=== PATIENT | male | born 1950 | race African-American/Black ===

== ENCOUNTER 2017-10-22 14:48 | Inpatient (IN) | payer OTHER ==
[2017-10-22 16:05] LABS: ADD MAN DIFF? NO
[2017-10-22 16:07] LABS: ABNORMAL IP MESSAGE 1; BASOPHIL # 0.1 10^3/ul (0.0-0.1); BASOPHILS % 0.4 % (0.0-2.0); EOSINOPHILS # 0.4 10^3/ul (0.0-0.5); EOSINOPHILS % 2.4 % (0.0-7.0); HEMOGLOBIN 11.2 g/dl (14.0-18.0); MEAN CORPUSCULAR HEMOGLOBIN 28.7 pg (29.0-33.0); MEAN CORPUSCULAR HGB CONC 32.9 g/dl (32.0-37.0); MEAN CORPUSCULAR VOLUME 87.2 fl (82.0-101.0); MONOCYTES % 12.6 % (0.0-11.0); NEUTROPHIL # 12.4 10^3/ul (1.6-7.5); NEUTROPHILS % 77.3 % (39.0-77.0); NUCLEATED RED BLOOD CELLS% 0.1 /100WBC (0.0-0.0); PLATELET COUNT 346 10^3/UL (140-415); POSITIVE DIFF @See below; RED CELL DISTRIBUTION WIDTH 22.4 % (11.5-14.5)
[2017-10-22 16:25] LABS: ALANINE AMINOTRANSFERASE 18 IU/L (13-69); ALBUMIN 2.4 g/dl (3.3-4.9); ALKALINE PHOSPHATASE 132 IU/L (42-121); ANION GAP 16 (8-16); ASPARTATE AMINO TRANSFERASE 20 IU/L (15-46); BILIRUBIN,INDIRECT 0.5 mg/dl (0-1.1); BILIRUBIN,TOTAL 0.5 mg/dl (0.2-1.3); BLOOD UREA NITROGEN 6 mg/dl (7-20); CALCIUM 8.3 mg/dl (8.4-10.2); CARBON DIOXIDE 22 mmol/L (21-31); CHLORIDE 106 mmol/L (97-110); CREATININE 2.05 mg/dl (0.61-1.24); GLUCOSE 223 mg/dl (70-220); POTASSIUM 4.1 mmol/L (3.5-5.1); SODIUM 140 mmol/L (135-144); TOTAL PROTEIN 6.4 g/dl (6.1-8.1)
[2017-10-22] MEDS: SOD CHLORIDE 0.9% 250 ML IV (16:30)
[2017-10-22 16:33] LABS: B-TYPE NATRIURETIC PEPTIDE 3880 PG/ML (0-125)
[2017-10-22] MEDS: PIPER-TAZO 3.375 GM IV (PMX) 100 ML IVPB (16:37)
[2017-10-22] MEDS ORDERED: ACETAMINOPHEN 325 MG TAB PO ×2 (18:00→20:00)
[2017-10-22] MEDS ORDERED: ONDANSETRON 4 MG INJ IV (18:00)
[2017-10-22] MEDS ORDERED: SOD CHLORIDE 0.9% 1,000 ML IV (19:44)
[2017-10-22 19:46] LABS: ADD UMIC YES; UR ASCORBIC ACID 40 mg/dL (NEGATIVE); UR BACTERIA FEW /HPF (NONE SEEN); UR BILIRUBIN (Dip) 1+ mg/dL (NEGATIVE); UR BLOOD (Dip) 1+ mg/dL (NEGATIVE); UR CLARITY SLIGHTLY CLOUDY (CLEAR); UR COLOR AMBER (YELLOW); UR GLUCOSE (Dip) NEGATIVE (NEGATIVE); UR KETONES (Dip) NEGATIVE (NEGATIVE); UR LEUKOCYTE ESTERASE (Dip) 3+ Leu/ul (NEGATIVE); UR NITRITE (Dip) NEGATIVE (NEGATIVE); UR RBC 17 /HPF (0-5); UR SPECIFIC GRAVITY (Dip) 1.024 (1.003-1.030); UR TOTAL PROTEIN (Dip) 1+ mg/dl (NEGATIVE); UR UROBILINOGEN (Dip) 2+ mg/dL (NEGATIVE); UR WBC > 182 /HPF (0-5)
[2017-10-22] MEDS ORDERED: HYDROCODONE/APAP (5/325) TAB PO (20:00)
[2017-10-22] MEDS ORDERED: DOCUSATE SODIUM 100 MG CAP PO (20:00)
[2017-10-22] MEDS ORDERED: morphine 2 MG INJ IV (20:00)
[2017-10-22] MEDS ORDERED: NACL 0.9% 3 ML SYG IV (20:00)
[2017-10-22] MEDS ORDERED: DEXTROSE 50% 50 ML SYRINGE IV ×2 (20:30)
[2017-10-22] MEDS ORDERED: GLUCOSE GEL 15 GRAM TUBE BUCCAL (20:30)
[2017-10-22] MEDS ORDERED: GLUCOSE GEL 15 GRAM TUBE PO ×2 (20:30)
[2017-10-22] MEDS ORDERED: GLUCAGON 1 MG INJ IM (20:30)
[2017-10-22 20:33] LABS: LACTIC ACID 2.9 mmol/L (0.5-2.0)
[2017-10-22] MEDS: CEFTRIAXONE 1 GM/50 ML (PMX) 50 ML IVPB (20:41)
[2017-10-22] MEDS ORDERED: SODIUM CHLORIDE 0.9% 1L BAG IV* (20:43)
[2017-10-22] MEDS ORDERED: CEFEPIME 2GM/50 ML (PMX) 50 ML IVPB (20:43)
[2017-10-22] MEDS: INSULIN GLARGINE [LANtus] 3 ML PEN SC (22:00)
[2017-10-22] MEDS: SOD CHLORIDE 0.9% 2,000 ML IV (23:35)
[2017-10-22] MEDS: DIPHENHYDRAMINE 25 MG CAP PO (23:39)
[2017-10-22] MEDS: SOD CHLORIDE 0.9% 1,000 ML IV (23:53)
[2017-10-22] MEDS: INSULIN ASPART [NOVOLOG] 3 ML PEN SC (23:53)
[2017-10-23] MEDS: ATORVASTATIN 80 MG TAB PO ×2 (00:14→21:00)
[2017-10-23] MEDS: VANCOMYCIN 1 GM (PMX) 250 ML IVPB (00:15)
[2017-10-23] MEDS: SODIUM CHLORIDE 0.9% 1L BAG IV* (01:28)
[2017-10-23] MEDS ORDERED: SODIUM CHLORIDE 0.9% 1L BAG IV* (01:28)
[2017-10-23] MEDS: ACCU-CHEK XX (02:00)
[2017-10-23] MEDS: DEXTROSE 5%-0.45% NACL 1,000 ML IV (03:11)
[2017-10-23] MEDS: INSULIN ASPART [NOVOLOG] 3 ML PEN SC ×7 (08:15→21:00)
[2017-10-23 08:19] LABS: ADD MAN DIFF? NO
[2017-10-23 08:27] LABS: WHITE BLOOD COUNT 14.5 10^3/ul (4.8-10.8)
[2017-10-23 08:27] LABS: ABNORMAL IP MESSAGE 1; BASOPHIL # 0.1 10^3/ul (0.0-0.1); BASOPHILS % 0.6 % (0.0-2.0); EOSINOPHILS % 6.9 % (0.0-7.0); HEMATOCRIT 27.4 % (42.0-52.0); HEMOGLOBIN 9.1 g/dl (14.0-18.0); LYMPHOCYTES # 1.1 10^3/ul (0.8-2.9); LYMPHOCYTES % 7.8 % (15.0-51.0); MEAN CORPUSCULAR HEMOGLOBIN 28.3 pg (29.0-33.0); MEAN CORPUSCULAR HGB CONC 33.2 g/dl (32.0-37.0); MEAN CORPUSCULAR VOLUME 85.4 fl (82.0-101.0); MEAN PLATELET VOLUME 9.9 fl (7.4-10.4); MONOCYTE # 1.9 10^3/ul (0.3-0.9); MONOCYTES % 13.3 % (0.0-11.0); NEUTROPHIL # 10.3 10^3/ul (1.6-7.5); NEUTROPHILS % 70.6 % (39.0-77.0); PLATELET COUNT 277 10^3/UL (140-415); POSITIVE DIFF @See below; RED BLOOD COUNT 3.21 10^6/ul (4.70-6.10); RED CELL DISTRIBUTION WIDTH 22.2 % (11.5-14.5)
[2017-10-23] MEDS: CHOLECALCIFEROL 1,000 UNIT TAB PO (08:28)
[2017-10-23] MEDS: FINASTERIDE 5 MG TAB PO (08:28)
[2017-10-23] MEDS: NICOTINE (21 MG/24 HR) PATCH TRANSDERM (08:28)
[2017-10-23] MEDS: ASPIRIN (EC) 81 MG TAB PO (08:28)
[2017-10-23 08:37] LABS: HEMOGLOBIN A1C 5.3 % (0-5.9)
[2017-10-23 08:39] LABS: LACTIC ACID 1.5 mmol/L (0.5-2.0)
[2017-10-23 08:43] LABS: ANION GAP 11 (8-16); BLOOD UREA NITROGEN 5 mg/dl (7-20); CALCIUM 7.5 mg/dl (8.4-10.2); CARBON DIOXIDE 22 mmol/L (21-31); CHLORIDE 109 mmol/L (97-110); CREATININE 1.54 mg/dl (0.61-1.24); GLUCOSE 96 mg/dl (70-220); MAGNESIUM 1.7 mg/dl (1.7-2.5); PHOSPHORUS 3.6 mg/dl (2.5-4.9); POTASSIUM 3.6 mmol/L (3.5-5.1); SODIUM 138 mmol/L (135-144)
[2017-10-23] MEDS: ONDANSETRON 4 MG INJ IV (12:19)
[2017-10-23] MEDS ORDERED: VANCOMYCIN IV PER PHARMACY XX (16:00)
[2017-10-23] MEDS ORDERED: morphine LIQ (10 MG/5 ML) CUP PO (17:00)
[2017-10-23] MEDS: SOD CHLORIDE 0.9% 1,000 ML IV (17:11)
[2017-10-23] MEDS: VANCOMYCIN 1.5 GM in SOD CHLORIDE 0.9% 250 ML IVPB (17:36)
[2017-10-23] MEDS ORDERED: VANCOMYCIN 2 GM in SOD CHLORIDE 0.9% 500 ML IVPB (18:00)
[2017-10-23] MEDS ORDERED: CEFTRIAXONE 1 GM/50 ML (PMX) 50 ML IVPB (20:00)
[2017-10-23] MEDS: INSULIN GLARGINE [LANtus] 3 ML PEN SC (20:00)
[2017-10-23 22:54] LABS: GLUCOSE 88 mg/dl (70-220)
[2017-10-24] MEDS: ACCU-CHEK XX (02:00)
[2017-10-24] MEDS: SOD CHLORIDE 0.9% 1,000 ML IV ×3 (03:05→22:30)
[2017-10-24 06:08] LABS: ADD MAN DIFF? NO
[2017-10-24 06:12] LABS: ABNORMAL IP MESSAGE 1; BASOPHILS % 0.4 % (0.0-2.0); EOSINOPHILS # 1.3 10^3/ul (0.0-0.5); EOSINOPHILS % 11.2 % (0.0-7.0); HEMATOCRIT 28.5 % (42.0-52.0); HEMOGLOBIN 9.4 g/dl (14.0-18.0); LYMPHOCYTES # 0.6 10^3/ul (0.8-2.9); LYMPHOCYTES % 5.6 % (15.0-51.0); MEAN CORPUSCULAR HEMOGLOBIN 28.7 pg (29.0-33.0); MEAN CORPUSCULAR VOLUME 86.9 fl (82.0-101.0); MONOCYTE # 1.5 10^3/ul (0.3-0.9); NEUTROPHIL # 7.8 10^3/ul (1.6-7.5); PLATELET COUNT 304 10^3/UL (140-415); POSITIVE DIFF @See below; RED BLOOD COUNT 3.28 10^6/ul (4.70-6.10); RED CELL DISTRIBUTION WIDTH 22.4 % (11.5-14.5)
[2017-10-24 06:12] LABS: WHITE BLOOD COUNT 11.3 10^3/ul (4.8-10.8)
[2017-10-24 06:45] LABS: ANION GAP 9 (8-16); BLOOD UREA NITROGEN 4 mg/dl (7-20); CALCIUM 7.4 mg/dl (8.4-10.2); CARBON DIOXIDE 22 mmol/L (21-31); CHLORIDE 111 mmol/L (97-110); CREATININE 1.39 mg/dl (0.61-1.24); GLUCOSE 100 mg/dl (70-220); MAGNESIUM 1.7 mg/dl (1.7-2.5); POTASSIUM 3.6 mmol/L (3.5-5.1); SODIUM 138 mmol/L (135-144)
[2017-10-24] MEDS: INSULIN ASPART [NOVOLOG] 3 ML PEN SC ×7 (08:15→20:50)
[2017-10-24] MEDS: FINASTERIDE 5 MG TAB PO (08:46)
[2017-10-24] MEDS: ASPIRIN (EC) 81 MG TAB PO (08:47)
[2017-10-24] MEDS: NICOTINE (21 MG/24 HR) PATCH TRANSDERM (08:47)
[2017-10-24] MEDS: CHOLECALCIFEROL 1,000 UNIT TAB PO (08:47)
[2017-10-24] MEDS: VANCOMYCIN 1.5 GM in SOD CHLORIDE 0.9% 250 ML IVPB (17:32)
[2017-10-24] MEDS: INSULIN GLARGINE [LANtus] 3 ML PEN SC (20:00)
[2017-10-24] MEDS: DIPHENHYDRAMINE 25 MG CAP PO (20:48)
[2017-10-24] MEDS: ATORVASTATIN 80 MG TAB PO (20:48)
[2017-10-25] MEDS: ACCU-CHEK XX (02:00)
[2017-10-25 06:13] LABS: ADD MAN DIFF? NO
[2017-10-25 06:22] LABS: ABNORMAL IP MESSAGE 1; BASOPHIL # 0.1 10^3/ul (0.0-0.1); BASOPHILS % 0.5 % (0.0-2.0); EOSINOPHILS # 2.2 10^3/ul (0.0-0.5); EOSINOPHILS % 15.7 % (0.0-7.0); HEMATOCRIT 31.7 % (42.0-52.0); HEMOGLOBIN 10.4 g/dl (14.0-18.0); LYMPHOCYTES % 7.2 % (15.0-51.0); MEAN CORPUSCULAR HGB CONC 32.8 g/dl (32.0-37.0); MEAN CORPUSCULAR VOLUME 88.3 fl (82.0-101.0); MEAN PLATELET VOLUME 10.2 fl (7.4-10.4); MONOCYTE # 1.5 10^3/ul (0.3-0.9); MONOCYTES % 10.5 % (0.0-11.0); NEUTROPHIL # 9.1 10^3/ul (1.6-7.5); NEUTROPHILS % 65.2 % (39.0-77.0); PLATELET COUNT 341 10^3/UL (140-415); POSITIVE DIFF @See below; RED BLOOD COUNT 3.59 10^6/ul (4.70-6.10); RED CELL DISTRIBUTION WIDTH 22.5 % (11.5-14.5)
[2017-10-25 06:51] LABS: ANION GAP 7 (8-16); BLOOD UREA NITROGEN 5 mg/dl (7-20); CALCIUM 7.7 mg/dl (8.4-10.2); CARBON DIOXIDE 23 mmol/L (21-31); CHLORIDE 116 mmol/L (97-110); GLUCOSE 90 mg/dl (70-220); MAGNESIUM 1.6 mg/dl (1.7-2.5); POTASSIUM 4.1 mmol/L (3.5-5.1); SODIUM 142 mmol/L (135-144)
[2017-10-25] MEDS: INSULIN ASPART [NOVOLOG] 3 ML PEN SC ×5 (08:15→20:48)
[2017-10-25] MEDS: SOD CHLORIDE 0.9% 1,000 ML IV ×3 (08:30→20:12)
[2017-10-25] MEDS: CHOLECALCIFEROL 1,000 UNIT TAB PO (09:10)
[2017-10-25] MEDS: ASPIRIN (EC) 81 MG TAB PO (09:10)
[2017-10-25] MEDS: FINASTERIDE 5 MG TAB PO (09:11)
[2017-10-25] MEDS: NICOTINE (21 MG/24 HR) PATCH TRANSDERM (09:12)
[2017-10-25] MEDS: MAGNESIUM OXIDE 400 MG TAB PO ×2 (11:14→20:46)
[2017-10-25] MEDS: MAGNESIUM SULFATE 2 GM/50 ML 50 ML IVPB (18:29)
[2017-10-25] MEDS: DIPHENHYDRAMINE 25 MG CAP PO (18:31)
[2017-10-25] MEDS: INSULIN GLARGINE [LANtus] 3 ML PEN SC (20:00)
[2017-10-25] MEDS: DOXYCYCLINE 100 MG TAB PO (20:45)
[2017-10-25] MEDS: ATORVASTATIN 80 MG TAB PO (20:46)
[2017-10-29 20:11] LABS: PTH CALCIUM 7.5 mg/dL (8.6-10.3)
[2017-10-31 08:56] LABS: PTH INTACT 53 pg/mL (14-64)
== END 2017-10-25 23:15 | DRG 871 ==
LOC: MS2 21:41 → E/R 14:48 → MS2 17:46
DX: A41.9 Sepsis, unspecified organism (principal); N17.0 Acute kidney failure with tubular necrosis; J96.20 Acute and chronic respiratory failure, unspecified whether with hypoxia or hypercapnia; N39.0 Urinary tract infection, site not specified; I13.0 Hypertensive heart and chronic kidney disease with heart failure and stage 1 through stage 4 chronic kidney disease, or unspecified chronic kidney disease; E44.0 Moderate protein-calorie malnutrition; I50.9 Heart failure, unspecified; E55.9 Vitamin D deficiency, unspecified; B95.62 Methicillin resistant Staphylococcus aureus infection as the cause of diseases classified elsewhere; F17.210 Nicotine dependence, cigarettes, uncomplicated; E03.9 Hypothyroidism, unspecified; E11.65 Type 2 diabetes mellitus with hyperglycemia; E11.22 Type 2 diabetes mellitus with diabetic chronic kidney disease; I25.10 Atherosclerotic heart disease of native coronary artery without angina pectoris; N40.0 Benign prostatic hyperplasia without lower urinary tract symptoms; N18.3 Chronic kidney disease, stage 3 (moderate); E83.42 Hypomagnesemia; Z90.5 Acquired absence of kidney; Z86.73 Personal history of transient ischemic attack (TIA), and cerebral infarction without residual deficits; Z85.528 Personal history of other malignant neoplasm of kidney; Z95.5 Presence of coronary angioplasty implant and graft; Z79.82 Long term (current) use of aspirin; Z88.2 Allergy status to sulfonamides; Z85.46 Personal history of malignant neoplasm of prostate
CPT/HCPCS: 36415; 71045; 76775; 80048; 80053; 81001; 82306; 82947; 82962; 83036; 83605; 83735; 83880; 83970; 84100; 85025; 87040; 87086; 96374; 97110; 97116; 97162; 97530; 99285-25